=== PATIENT | female | born 1985 | race Caucasian/White ===

== ENCOUNTER → 2021-04-19 21:53 | Observation (INO) ==
[2021-04-19 20:43] LABS: Bilirubin,Urine Negative (Negative); Blood,Urine Negative (Negative); Clarity,Urine Clear (Clear); Color,Urine Colorless (Yellow); Glucose,Urine (UA) Normal (Normal); Ketones,Urine Negative (Negative); Leukocyte Esterase,Urine Negative (Negative); Nitrite,Urine Negative (Negative); Protein,Urine Negative (Neg-Trace); Specific Gravity,Urine 1.007 (1.010-1.025); Urobilinogen,Urine Normal (Normal)
[2021-04-19 20:50] LABS: Basophils # 0.1 K/mcL (0.0-0.2); Basophils % 0.6 %; Eosinophils # 0.2 K/mcL (0.0-0.6); Eosinophils % 1.5 %; Hematocrit 34.1 % (35.3-44.9); Hemoglobin 11.7 g/dL (11.5-15.4); Immature Granulocytes % 0.9 % (0-4); Lymphocytes # 2.1 K/mcL (0.6-4.6); Lymphocytes % 19.8 %; Mean Corpuscular HGB Conc 34.3 g/dL (31.6-35.5); Mean Corpuscular Hemoglobin 30.8 pg (28.0-33.3); Mean Corpuscular Volume 89.7 fL (83.0-100.0); Monocytes # 1.3 K/mcL (0.0-1.3); Monocytes % 11.6 %; Neutrophils # 7.1 K/mcL (1.6-8.9); Platelet Count 311 K/mcL (140-400); Red Cell Distribution Width 13.3 % (11.5-14.5); Segmented Neutrophils % 65.6 %; White Blood Count 10.8 K/mcL (4.3-11.1)
[2021-04-19 20:52] LABS: Creatinine,Urine 26 mg/dL
[2021-04-19 21:03] LABS: Alanine Aminotransferase 13 Units/L (7-52); Aspartate Amino Transferase 14 Units/L (13-39); BUN/Creatinine Ratio 13 (6-26); Blood Urea Nitrogen 9 mg/dL (6-20); Lactate Dehydrogenase 147 Units/L (140-271); Uric Acid 4.3 mg/dL (2.3-7.6); eGFR For African Americans > 60 (> 60); eGFR For Non-African Americans > 60 (> 60)
== END | disposition home or self-care (01) ==
LOC: 1NENULAB
PROVIDERS: ADMIT Student in an Organized Health Care Education/Training Program; ATTEND Student in an Organized Health Care Education/Training Program

== ENCOUNTER → 2021-05-12 15:37 | Observation (INO) ==
[2021-05-12 14:38] LABS: Basophils % 0.4 %; Eosinophils # 0.1 K/mcL (0.0-0.6); Eosinophils % 0.8 %; Hematocrit 37.4 % (35.3-44.9); Hemoglobin 12.3 g/dL (11.5-15.4); Immature Granulocytes % 0.6 % (0-4); Lymphocytes # 1.9 K/mcL (0.6-4.6); Lymphocytes % 17.4 %; Mean Corpuscular HGB Conc 32.9 g/dL (31.6-35.5); Mean Corpuscular Volume 91.2 fL (83.0-100.0); Mean Platelet Volume 11.2 fL (9.4-12.4); Monocytes # 0.9 K/mcL (0.0-1.3); Monocytes % 8.3 %; Neutrophils # 7.9 K/mcL (1.6-8.9); Platelet Count 309 K/mcL (140-400); Red Cell Distribution Width 13.6 % (11.5-14.5); Segmented Neutrophils % 72.5 %; White Blood Count 10.9 K/mcL (4.3-11.1)
[2021-05-12 14:57] LABS: Protein/Creatinine Ratio,Urine 0.15 mg/mg (0.00-0.20)
[2021-05-12 14:59] LABS: Alanine Aminotransferase 13 Units/L (7-52); Aspartate Amino Transferase 13 Units/L (13-39); BUN/Creatinine Ratio 17 (6-26); Blood Urea Nitrogen 11 mg/dL (6-20); Lactate Dehydrogenase 138 Units/L (140-271); Uric Acid 4.4 mg/dL (2.3-7.6); eGFR For African Americans > 60 (> 60); eGFR For Non-African Americans > 60 (> 60)
[~2021-05-12 15:37] MED LIST: FLU Vac QV 21-22 (6Month+)/PF 0.5 ML SYRINGE IM ONE
== END | disposition home or self-care (01) ==
LOC: 1NENULAB
PROVIDERS: ADMIT Obstetrics & Gynecology; ATTEND Obstetrics & Gynecology

== ENCOUNTER 2021-05-20 07:45 | Inpatient (IN) ==
[2021-05-20] MEDS ORDERED: Famotidine 20 MG/2 ML VIAL IVP ONE (10:56)
[2021-05-20] MEDS ORDERED: Metoclopramide 10 MG/2 ML VIAL IVP ONE (10:56)
[2021-05-20] MEDS ORDERED: Oxytocin 20 units/ LR 1000 mL 20 UNIT/1,000 ML BAG IVC ONE ×2 (10:56→14:01)
[2021-05-20] MEDS ORDERED: Ringers Solution, Lactated 1,000 ML IVC ONE (10:56)
[2021-05-20] MEDS ORDERED: CeFAZolin Syr 3,000MG/30 ML 3,000 MG/30 ML SYRINGE IVPB ONE (10:56)
[2021-05-20] MEDS ORDERED: Naloxone 0.4 MG/ML INJ IVP PRN (10:59)
[2021-05-20] MEDS ORDERED: Ringers Solution, Lactated 1,000 ML IVC SCH (11:00)
[2021-05-20 11:29] LABS: Basophils % 0.5 %; Eosinophils # 0.1 K/mcL (0.0-0.6); Eosinophils % 1.2 %; Hematocrit 34.9 % (35.3-44.9); Hemoglobin 11.9 g/dL (11.5-15.4); Immature Granulocytes % 0.6 % (0-4); Lymphocytes # 1.8 K/mcL (0.6-4.6); Lymphocytes % 21.9 %; Mean Corpuscular HGB Conc 34.1 g/dL (31.6-35.5); Mean Corpuscular Hemoglobin 30.7 pg (28.0-33.3); Mean Corpuscular Volume 89.9 fL (83.0-100.0); Mean Platelet Volume 11.1 fL (9.4-12.4); Monocytes # 0.7 K/mcL (0.0-1.3); Monocytes % 8.9 %; Neutrophils # 5.4 K/mcL (1.6-8.9); Platelet Count 271 K/mcL (140-400); Red Blood Count 3.88 M/mcL (3.82-4.97); Red Cell Distribution Width 13.2 % (11.5-14.5); Segmented Neutrophils % 66.9 %; White Blood Count 8.1 K/mcL (4.3-11.1)
[2021-05-20 11:41] LABS: Amphetamine Screen,Urine Negative ng/mL (Cutoff=1000); Barbiturate Screen,Urine Negative ng/mL (Cutoff=200); Benzodiazepines Screen,Urine Negative ng/mL (Cutoff=200); Cannabinoid Screen,Urine Negative ng/mL (Cutoff = 50); Cocaine Screen,Urine Negative ng/mL (Cutoff= 300); Opiate Screen,Urine Negative ng/mL (Cutoff=300); Phencyclidine Screen,Urine Negative ng/mL (Cutoff=25)
[2021-05-20 11:58] LABS: Influenza A PCR Negative (Negative); Influenza B PCR Negative (Negative); Resp. Syncytial Virus PCR Negative (Negative); SARS-CoV-2 by PCR (In House) Negative (Negative)
[2021-05-20] MEDS ORDERED: Ketorolac 30 MG/ML VIAL ONE (12:14)
[2021-05-20] MEDS ORDERED: EPHEDrine 50 MG/ML VIAL ONE (12:14)
[2021-05-20] MEDS ORDERED: Ondansetron 4 MG/2 ML VIAL ONE (12:14)
[2021-05-20] MEDS ORDERED: Acetaminophen IV 1,000 MG/100 ML BAG IVPB ONE (12:15)
[2021-05-20] MEDS ORDERED: *HR* FentaNYL (PF) 100 MCG/2 ML VIAL ONE (12:57)
[2021-05-20] MEDS ORDERED: *HR* Morphine Sulfate/PF 10 MG/10 ML AMPUL ONE (12:57)
[2021-05-20] MEDS ORDERED: Oxytocin 20 units/ LR 1000 mL 20 UNIT/1,000 ML BAG IVC SCH (16:22)
[2021-05-20] MEDS ORDERED: Ondansetron 4 MG/2 ML VIAL IVP PRN (16:22)
[2021-05-20] MEDS ORDERED: Metoclopramide 10 MG/2 ML VIAL IVP PRN (16:22)
[2021-05-20] MEDS ORDERED: Rho Immune Globulin 1,500 UNIT SYRINGE IM ONE (16:22)
[2021-05-20] MEDS: Gabapentin 300 MG CAPSULE PO SCH ×2 (17:08→23:29)
[2021-05-20] MEDS: Ibuprofen 600 MG TABLET PO SCH (17:08)
[2021-05-20] MEDS: metroNIDAZOLE 500 MG TABLET PO SCH ×2 (17:09→23:29)
[2021-05-20] MEDS: *HR* OxyCODONE Immed Rel 5 MG TABLET PO PRN ×2 (18:55→23:29)
[2021-05-20] MEDS: Acetaminophen 325 MG TABLET PO SCH (18:56)
[2021-05-20] MEDS: cefOXitin 2,000 MG in Water for inj. (sterile) 20 ML IVP SCH (20:53)
[2021-05-21] MEDS: Acetaminophen 325 MG TABLET PO SCH ×4 (02:39→20:31)
[2021-05-21 03:51] LABS: Basophils # 0.1 K/mcL (0.0-0.2); Basophils % 0.5 %; Eosinophils # 0.1 K/mcL (0.0-0.6); Eosinophils % 0.6 %; Immature Granulocytes % 0.5 % (0-4); Lymphocytes # 1.4 K/mcL (0.6-4.6); Lymphocytes % 12.5 %; Mean Corpuscular HGB Conc 32.9 g/dL (31.6-35.5); Mean Corpuscular Hemoglobin 30.2 pg (28.0-33.3); Mean Corpuscular Volume 91.7 fL (83.0-100.0); Mean Platelet Volume 11.3 fL (9.4-12.4); Monocytes # 1.3 K/mcL (0.0-1.3); Monocytes % 12.3 %; Neutrophils # 7.9 K/mcL (1.6-8.9); Platelet Count 232 K/mcL (140-400); Red Blood Count 3.38 M/mcL (3.82-4.97); Red Cell Distribution Width 13.2 % (11.5-14.5); Segmented Neutrophils % 73.6 %; White Blood Count 10.8 K/mcL (4.3-11.1)
[2021-05-21 03:56] LABS: Hemoglobin 10.2 g/dL (11.5-15.4)
[2021-05-21] MEDS: Ibuprofen 600 MG TABLET PO SCH ×3 (05:25→17:57)
[2021-05-21] MEDS: cefOXitin 2,000 MG in Water for inj. (sterile) 20 ML IVP SCH (05:26)
[2021-05-21] MEDS: *HR* OxyCODONE Immed Rel 5 MG TABLET PO PRN ×4 (05:49→18:43)
[2021-05-21] MEDS: Simethicone 80 MG TAB.CHEW PO PRN (08:45)
[2021-05-21] MEDS: Gabapentin 300 MG CAPSULE PO SCH ×2 (08:45→20:31)
[2021-05-21] MEDS: Prenatal Vit/FA 1 EACH TABLET PO SCH (08:46)
[2021-05-21] MEDS: metroNIDAZOLE 500 MG TABLET PO SCH ×3 (09:00→20:30)
[2021-05-21] MEDS ORDERED: FLU Vac QV 21-22 (6Month+)/PF 0.5 ML SYRINGE IM ONE (11:24)
[2021-05-22] MEDS: *HR* OxyCODONE Immed Rel 5 MG TABLET PO PRN ×5 (00:34→20:37)
[2021-05-22] MEDS: Ibuprofen 600 MG TABLET PO SCH ×5 (00:34→22:54)
[2021-05-22] MEDS: Acetaminophen 325 MG TABLET PO SCH ×4 (04:43→22:55)
[2021-05-22] MEDS: metroNIDAZOLE 500 MG TABLET PO SCH (07:43)
[2021-05-22] MEDS: Gabapentin 300 MG CAPSULE PO SCH ×2 (07:43→20:37)
[2021-05-22] MEDS: Prenatal Vit/FA 1 EACH TABLET PO SCH (07:43)
[2021-05-22 14:01] LABS: Basophils % 0.2 %; Eosinophils # 0.2 K/mcL (0.0-0.6); Eosinophils % 2.7 %; Hematocrit 30.3 % (35.3-44.9); Hemoglobin 10.4 g/dL (11.5-15.4); Lymphocytes # 1.4 K/mcL (0.6-4.6); Lymphocytes % 16.6 %; Mean Corpuscular HGB Conc 34.3 g/dL (31.6-35.5); Mean Corpuscular Hemoglobin 31.9 pg (28.0-33.3); Mean Corpuscular Volume 92.9 fL (83.0-100.0); Monocytes # 0.8 K/mcL (0.0-1.3); Monocytes % 9.8 %; Platelet Count 252 K/mcL (140-400); Red Blood Count 3.26 M/mcL (3.82-4.97); Red Cell Distribution Width 13.9 % (11.5-14.5); Segmented Neutrophils % 69.7 %; White Blood Count 8.6 K/mcL (4.3-11.1)
[2021-05-22 14:10] LABS: Aspartate Amino Transferase 21 Units/L (13-39); eGFR For African Americans > 60 (> 60); eGFR For Non-African Americans > 60 (> 60)
[2021-05-22] MEDS ORDERED: NIFEdipine Immed Rel 10 MG CAPSULE PO ONE (17:35)
[2021-05-22] MEDS: Simethicone 80 MG TAB.CHEW PO PRN (20:37)
[2021-05-22] MEDS ORDERED: polyethylene glycoL 3350 17 GM POWD.PACK PO PRN (20:52)
[2021-05-23] MEDS: *HR* OxyCODONE Immed Rel 5 MG TABLET PO PRN ×5 (02:09→19:52)
[2021-05-23] MEDS ORDERED: *HR* Labetalol 20 MG/4 ML SYRINGE IVP ONE (04:39)
[2021-05-23] MEDS: NIFEdipine XL (24 HR) 30 MG TAB.ER.24 PO SCH (04:53)
[2021-05-23] MEDS ORDERED: Calcium Gluconate 1,000 MG/10 ML VIAL IVP PRN (05:59)
[2021-05-23] MEDS: Acetaminophen 325 MG TABLET PO SCH ×3 (06:24→23:20)
[2021-05-23] MEDS: Ibuprofen 600 MG TABLET PO SCH ×3 (06:25→23:19)
[2021-05-23] MEDS: Magnesium Sulf 20 gm/SW 500mL 20 GM/500 ML IV.SOLN IVC SCH ×2 (06:59→16:27)
[2021-05-23 07:18] LABS: Eosinophils % 3.7 %; Lymphocytes % 24.9 %; Red Cell Distribution Width 13.9 % (11.5-14.5)
[2021-05-23 07:20] LABS: Basophils # 0.1 K/mcL (0.0-0.2); Basophils % 0.6 %; Eosinophils # 0.3 K/mcL (0.0-0.6); Hematocrit 32.2 % (35.3-44.9); Hemoglobin 10.6 g/dL (11.5-15.4); Immature Granulocytes % 1.6 % (0-4); Immature Platelets 5.8 % (1.1-6.1); Lymphocytes # 2.1 K/mcL (0.6-4.6); Mean Corpuscular HGB Conc 32.9 g/dL (31.6-35.5); Mean Corpuscular Hemoglobin 30.5 pg (28.0-33.3); Mean Corpuscular Volume 92.5 fL (83.0-100.0); Mean Platelet Volume 11.1 fL (9.4-12.4); Monocytes # 0.8 K/mcL (0.0-1.3); Monocytes % 8.9 %; Neutrophils # 5.1 K/mcL (1.6-8.9); Platelet Count 241 K/mcL (140-400); Red Blood Count 3.48 M/mcL (3.82-4.97); Segmented Neutrophils % 60.3 %; White Blood Count 8.5 K/mcL (4.3-11.1)
[2021-05-23 07:30] LABS: Platelet Estimate Normal (Normal)
[2021-05-23 07:36] LABS: Alanine Aminotransferase 17 Units/L (7-52); Aspartate Amino Transferase 19 Units/L (13-39); BUN/Creatinine Ratio 20 (6-26); Blood Urea Nitrogen 10 mg/dL (6-20); Uric Acid 3.7 mg/dL (2.3-7.6); eGFR For African Americans > 60 (> 60); eGFR For Non-African Americans > 60 (> 60)
[2021-05-23] MEDS ORDERED: NIFEdipine XL (24 HR) 30 MG TAB.ER.24 PO SCH (09:00)
[2021-05-23] MEDS: Prenatal Vit/FA 1 EACH TABLET PO SCH (09:45)
[2021-05-23] MEDS: Gabapentin 300 MG CAPSULE PO SCH ×3 (09:45→19:52)
[2021-05-24] MEDS: *HR* OxyCODONE Immed Rel 5 MG TABLET PO PRN ×3 (02:30→21:33)
[2021-05-24] MEDS: Magnesium Sulf 20 gm/SW 500mL 20 GM/500 ML IV.SOLN IVC SCH (02:30)
[2021-05-24] MEDS: Ibuprofen 600 MG TABLET PO SCH ×3 (05:35→17:56)
[2021-05-24] MEDS: Acetaminophen 325 MG TABLET PO SCH (05:35)
[2021-05-24] MEDS: NIFEdipine XL (24 HR) 30 MG TAB.ER.24 PO SCH (05:36)
[2021-05-24 07:57] LABS: Basophils # 0.1 K/mcL (0.0-0.2); Basophils % 0.7 %; Eosinophils # 0.3 K/mcL (0.0-0.6); Eosinophils % 3.8 %; Hematocrit 35.7 % (35.3-44.9); Hemoglobin 11.5 g/dL (11.5-15.4); Immature Granulocytes % 0.7 % (0-4); Lymphocytes # 1.8 K/mcL (0.6-4.6); Lymphocytes % 21.6 %; Mean Corpuscular HGB Conc 32.2 g/dL (31.6-35.5); Mean Corpuscular Hemoglobin 29.6 pg (28.0-33.3); Mean Platelet Volume 10.5 fL (9.4-12.4); Monocytes # 0.7 K/mcL (0.0-1.3); Monocytes % 8.2 %; Neutrophils # 5.3 K/mcL (1.6-8.9); Platelet Count 299 K/mcL (140-400); Red Blood Count 3.88 M/mcL (3.82-4.97); Red Cell Distribution Width 13.9 % (11.5-14.5); White Blood Count 8.2 K/mcL (4.3-11.1)
[2021-05-24 08:07] LABS: Alanine Aminotransferase 17 Units/L (7-52); Aspartate Amino Transferase 16 Units/L (13-39); BUN/Creatinine Ratio 15 (6-26); Blood Urea Nitrogen 9 mg/dL (6-20); Uric Acid 4.5 mg/dL (2.3-7.6); eGFR For African Americans > 60 (> 60); eGFR For Non-African Americans > 60 (> 60)
[2021-05-24] MEDS: Gabapentin 300 MG CAPSULE PO SCH ×3 (08:55→21:33)
[2021-05-24] MEDS: Prenatal Vit/FA 1 EACH TABLET PO SCH (08:55)
[2021-05-24] MEDS: Acetaminophen/Butalbital/CaffeineTABLET PO PRN (10:32)
[2021-05-25] MEDS: Ibuprofen 600 MG TABLET PO SCH ×2 (05:58→13:07)
[2021-05-25] MEDS: NIFEdipine XL (24 HR) 60 MG TAB.ER.24 PO SCH (07:54)
[2021-05-25] MEDS: Prenatal Vit/FA 1 EACH TABLET PO SCH (07:55)
[2021-05-25] MEDS: Gabapentin 300 MG CAPSULE PO SCH ×3 (07:55→20:16)
[2021-05-25] MEDS: *HR* OxyCODONE Immed Rel 5 MG TABLET PO PRN ×3 (08:38→20:16)
[2021-05-26] MEDS: *HR* OxyCODONE Immed Rel 5 MG TABLET PO PRN ×4 (00:54→19:51)
[2021-05-26] MEDS: Ibuprofen 600 MG TABLET PO SCH ×3 (05:08→19:50)
[2021-05-26] MEDS: Prenatal Vit/FA 1 EACH TABLET PO SCH (08:09)
[2021-05-26] MEDS: NIFEdipine XL (24 HR) 60 MG TAB.ER.24 PO SCH (08:09)
[2021-05-26] MEDS: Gabapentin 300 MG CAPSULE PO SCH ×3 (08:09→19:50)
[2021-05-26] MEDS: Acetaminophen/Butalbital/CaffeineTABLET PO PRN (16:42)
[2021-05-26] MEDS: Furosemide 20 MG TABLET PO SCH (17:44)
[2021-05-27] MEDS: *HR* OxyCODONE Immed Rel 5 MG TABLET PO PRN ×5 (00:18→23:46)
[2021-05-27] MEDS: Ibuprofen 600 MG TABLET PO SCH ×4 (04:18→23:46)
[2021-05-27] MEDS: Gabapentin 300 MG CAPSULE PO SCH ×3 (07:43→23:46)
[2021-05-27] MEDS: Furosemide 20 MG TABLET PO SCH ×2 (07:44→18:01)
[2021-05-27] MEDS: NIFEdipine XL (24 HR) 60 MG TAB.ER.24 PO SCH (07:44)
[2021-05-27] MEDS: Prenatal Vit/FA 1 EACH TABLET PO SCH (07:44)
[2021-05-27 16:20] VITALS: TEMP 98.3
[2021-05-27 22:52] VITALS: BP 138/82
[2021-05-27] MEDS ORDERED: FLU Vac QV 21-22 (6Month+)/PF 0.5 ML SYRINGE IM ONE (23:21)
[2021-05-28 04:37] VITALS: PULSE 97; O2SAT 98
== END 2021-05-27 23:58 | disposition home or self-care (01) | DRG 539 ==
LOC: 1NENULAB 10:30 → 1NENUOBS 16:51
PROVIDERS: ADMIT Obstetrics & Gynecology; ATTEND Obstetrics & Gynecology

== ENCOUNTER 2022-02-08 14:08 | Inpatient (IN) ==
[2022-02-08] MEDS ORDERED: *HR* OxyCODONE/APAP 10/325 TABLET PO PRN (14:23)
[2022-02-08] MEDS: *HR* OxyCODONE/APAP 10/325 TABLET PO PRN ×2 (19:40→23:33)
[2022-02-08] MEDS: Gabapentin 300 MG CAPSULE PO SCH (20:09)
[2022-02-08] MEDS: ALPRAZolam 1 MG TABLET PO PRN (23:33)
[2022-02-09 02:12] LABS: Basophils # 0.1 K/mcL (0.0-0.2); Basophils % 0.8 %; Eosinophils # 0.4 K/mcL (0.0-0.6); Eosinophils % 6.1 %; Hematocrit 29.4 % (35.3-44.9); Hemoglobin 9.3 g/dL (11.5-15.4); Immature Granulocytes % 0.3 % (0-4); Lymphocytes # 2.2 K/mcL (0.6-4.6); Lymphocytes % 34.7 %; Mean Corpuscular HGB Conc 31.6 g/dL (31.6-35.5); Mean Corpuscular Hemoglobin 28.4 pg (28.0-33.3); Mean Corpuscular Volume 89.9 fL (83.0-100.0); Mean Platelet Volume 9.7 fL (9.4-12.4); Monocytes # 0.5 K/mcL (0.0-1.3); Monocytes % 8.7 %; Neutrophils # 3.1 K/mcL (1.6-8.9); Platelet Count 317 K/mcL (140-400); Red Blood Count 3.27 M/mcL (3.82-4.97); Red Cell Distribution Width 13.7 % (11.5-14.5); Segmented Neutrophils % 49.4 %; White Blood Count 6.2 K/mcL (4.3-11.1)
[2022-02-09 02:30] LABS: BUN/Creatinine Ratio 22 (6-26); Blood Urea Nitrogen 18 mg/dL (6-20); C-Reactive Protein < 5 mg/L (Less than 10); Calcium 8.7 mg/dL (8.6-10.3); Carbon Dioxide 27 mEq/L (23-29); Chloride 108 mEq/L (98-107); Glucose 86 mg/dL (70-105); Magnesium 1.9 mg/dL (1.6-2.6); Osmolality,Calculated 291 (280-300); Potassium 3.8 mEq/L (3.5-5.1); Sodium 140 mEq/L (136-145); eGFR For African Americans > 60 (> 60); eGFR For Non-African Americans > 60 (> 60)
[2022-02-09 02:48] LABS: Ferritin 21 ng/mL (10-120)
[2022-02-09 03:31] LABS: Estimated Average Glucose 105 mg/dl; Hemoglobin A1C 5.3 %
[2022-02-09] MEDS: *HR* OxyCODONE/APAP 10/325 TABLET PO PRN ×3 (05:34→23:02)
[2022-02-09] MEDS: Gabapentin 300 MG CAPSULE PO SCH ×3 (09:19→21:06)
[2022-02-09] MEDS: Cyanocobalamin (B-12) 1,000 MCG TABLET PO SCH (09:19)
[2022-02-09] MEDS: Loratadine 10 MG TABLET PO SCH (09:19)
[2022-02-09] MEDS: BuPROPion XL (24 HR) 150 MG TABLET PO SCH (09:19)
[2022-02-09] MEDS ORDERED: CeFAZolin Syr 2,000MG/20 ML 2,000 MG/20 ML SYRINGE IVPB ONE (11:14)
[2022-02-09] MEDS ORDERED: Ringers Solution, Lactated 1,000 ML IVC SCH (11:15)
[2022-02-09] MEDS ORDERED: Ondansetron 4 MG/2 ML VIAL IVP PRN (11:27)
[2022-02-09] MEDS ORDERED: Scopolamine Patch 1.5 MG PATCH.TD72 TD ONE (11:27)
[2022-02-09] MEDS ORDERED: *HR* FentaNYL (PF) 100 MCG/2 ML VIAL IVP PRN (11:27)
[2022-02-09] MEDS ORDERED: *HR* HYDROmorphone PF 0.5 MG/0.5 ML SYRINGE IVP PRN (11:27)
[2022-02-09] MEDS ORDERED: *HR* Succinylcholine 200 MG/10 ML VIAL IVP ONE (12:54)
[2022-02-09] MEDS ORDERED: *HR* Rocuronium Bromide 50 MG/5 ML VIAL ONE (12:54)
[2022-02-09] MEDS ORDERED: Lidocaine -MPF 2% 5 ML VIAL ONE (12:54)
[2022-02-09] MEDS ORDERED: Ondansetron 4 MG/2 ML VIAL ONE (12:54)
[2022-02-09] MEDS ORDERED: *HR* Midazolam HCl 2 MG/2 ML VIAL ONE (12:56)
[2022-02-09] MEDS ORDERED: *HR* Propofol 200 MG/20 ML VIAL IVP ONE (12:56)
[2022-02-09] MEDS ORDERED: *HR* FentaNYL (PF) 100 MCG/2 ML VIAL ONE ×2 (12:56→13:57)
[2022-02-09] MEDS ORDERED: Vancomycin 1,000 MG VIAL ONE (13:59)
[2022-02-09] MEDS ORDERED: Sugammadex Sodium 200 MG/2 ML VIAL IV ONE (14:06)
[2022-02-09] MEDS ORDERED: Bacitracin OINT PKT TP ONE ×2 (14:21→14:34)
[2022-02-09] MEDS: ALPRAZolam 1 MG TABLET PO PRN (21:05)
[2022-02-10] MEDS: *HR* OxyCODONE/APAP 10/325 TABLET PO PRN ×5 (03:13→23:26)
[2022-02-10 04:58] LABS: Basophils # 0.1 K/mcL (0.0-0.2); Basophils % 0.5 %; Eosinophils # 0.1 K/mcL (0.0-0.6); Hematocrit 31.2 % (35.3-44.9); Hemoglobin 9.9 g/dL (11.5-15.4); Immature Granulocytes % 0.3 % (0-4); Lymphocytes # 1.9 K/mcL (0.6-4.6); Mean Corpuscular HGB Conc 31.7 g/dL (31.6-35.5); Mean Corpuscular Hemoglobin 28.4 pg (28.0-33.3); Mean Corpuscular Volume 89.7 fL (83.0-100.0); Monocytes # 0.7 K/mcL (0.0-1.3); Monocytes % 6.1 %; Platelet Count 361 K/mcL (140-400); Red Blood Count 3.48 M/mcL (3.82-4.97); Red Cell Distribution Width 13.8 % (11.5-14.5); Segmented Neutrophils % 74.1 %
[2022-02-10 04:59] LABS: Neutrophils # 7.9 K/mcL (1.6-8.9); White Blood Count 10.6 K/mcL (4.3-11.1)
[2022-02-10 05:21] LABS: BUN/Creatinine Ratio 18 (6-26); Blood Urea Nitrogen 14 mg/dL (6-20); Calcium 8.5 mg/dL (8.6-10.3); Carbon Dioxide 27 mEq/L (23-29); Chloride 106 mEq/L (98-107); Glucose 74 mg/dL (70-105); Magnesium 1.9 mg/dL (1.6-2.6); Osmolality,Calculated 287 (280-300); Sodium 139 mEq/L (136-145); eGFR For African Americans > 60 (> 60); eGFR For Non-African Americans > 60 (> 60)
[2022-02-10] MEDS: Gabapentin 300 MG CAPSULE PO SCH ×3 (08:02→21:35)
[2022-02-10] MEDS: Cyanocobalamin (B-12) 1,000 MCG TABLET PO SCH (08:02)
[2022-02-10] MEDS: BuPROPion XL (24 HR) 150 MG TABLET PO SCH (08:02)
[2022-02-10] MEDS: Loratadine 10 MG TABLET PO SCH (08:02)
[2022-02-10] MEDS: ALPRAZolam 1 MG TABLET PO PRN ×2 (09:52→21:34)
[2022-02-10] MEDS: Cefepime HCl 2,000 MG in 0.9 % Sodium Chloride Mini Bag 100 ML IVPB SCH ×2 (11:19→21:36)
[2022-02-10] MEDS: Vancomycin 1,500 MG/265 ML IV.SOLN IVPB SCH ×2 (12:22→23:40)
[2022-02-10] MEDS ORDERED: diazePAM 5 MG TABLET PO PRN ×2 (15:13→15:17)
[2022-02-10] MEDS ORDERED: Acetaminophen 325 MG TABLET PO PRN (15:14)
[2022-02-10] MEDS: Acetaminophen 325 MG TABLET PO PRN ×2 (15:38→21:35)
[2022-02-11] MEDS: *HR* OxyCODONE/APAP 10/325 TABLET PO PRN ×2 (03:49→07:51)
[2022-02-11 07:14] VITALS: BP 138/74; PULSE 74; TEMP 98; O2SAT 97
[2022-02-11] MEDS: Gabapentin 300 MG CAPSULE PO SCH (07:36)
[2022-02-11] MEDS: Loratadine 10 MG TABLET PO SCH (07:36)
[2022-02-11] MEDS: BuPROPion XL (24 HR) 150 MG TABLET PO SCH (07:37)
[2022-02-11] MEDS: Cyanocobalamin (B-12) 1,000 MCG TABLET PO SCH (07:37)
[2022-02-11] MEDS: Cefepime HCl 2,000 MG in 0.9 % Sodium Chloride Mini Bag 100 ML IVPB SCH (10:38)
[2022-02-11] MEDS: Vancomycin 1,500 MG/265 ML IV.SOLN IVPB SCH (10:38)
== END 2022-02-11 12:18 | disposition home or self-care (01) | DRG 721 ==
LOC: 4WAOSI
PROVIDERS: ADMIT Orthopaedic Surgery Orthopaedic Surgery of the Spine; ATTEND Orthopaedic Surgery Orthopaedic Surgery of the Spine